=== PATIENT | male | born 1945 | race Caucasian/White ===

== ENCOUNTER 2017-08-03 15:36 | Emergency (ER) | payer MEDICARE, OTHER ==
[2017-08-03] MEDS: TETANUS/DIPHTHERIA TOXOID ADULT 0.5 ML VIAL IM (16:52)
== END 2017-08-03 18:11 | disposition home or self-care (01) ==
LOC: PHEFT 15:36
DX: S61.213A Laceration without foreign body of left middle finger without damage to nail, initial encounter (principal); I10 Essential (primary) hypertension; I25.10 Atherosclerotic heart disease of native coronary artery without angina pectoris; Z72.0 Tobacco use; Z79.02 Long term (current) use of antithrombotics/antiplatelets; Z79.899 Other long term (current) drug therapy; Z23 Encounter for immunization; W29.8XXA Contact with other powered hand tools and household machinery, initial encounter; Z79.01 Long term (current) use of anticoagulants
CPT/HCPCS: 12001; 90471; 90714; 99283-25